=== PATIENT | female | born 1995 | race Caucasian/White ===

== ENCOUNTER 2016-09-29 18:02 | Emergency (ER) | payer MEDICAID ==
[~2016-09-29] VITALS: Ht 157.5 cm; Wt 79.5 kg
[~2016-09-29 18:02] MED LIST: BCP; CEFTIN500 MG PO; FLAGYL500 MG PO; IMPLANON68 MG ID; MACROBID 1100 MG/CAP PO; NEXPLANON68 MG ID; SPRINTEC
[2016-09-29 18:09] VITALS: BP 110/56; PULSE 96; TEMP 98.7
[2016-09-29] MEDS ORDERED: PEN-VEE K500 MG PO (18:36)
== END 2016-09-29 18:46 | disposition home or self-care (01) ==
LOC: COL.ER 18:02
DX: O99.612 Diseases of the digestive system complicating pregnancy, second trimester (principal); K08.89 Other specified disorders of teeth and supporting structures; K03.81 Cracked tooth; O99.332 Smoking (tobacco) complicating pregnancy, second trimester; F17.210 Nicotine dependence, cigarettes, uncomplicated; Z3A.20 20 weeks gestation of pregnancy

== ENCOUNTER 2016-12-03 16:30 | Outpatient (CLI) | payer MEDICAID ==
[~2016-12-03] VITALS: Ht 157.5 cm; Wt 88.2 kg
[~2016-12-03 16:30] MED LIST changes: +PEN-VEE K500 MG PO
[2016-12-03 16:43] VITALS: BP 110/72; PULSE 103; TEMP 99.2
[2016-12-03 17:33] LABS: PH 7 (5-8); SQUAMOUS EPITHELIAL 0-2 /hpf; URINE APPEARANCE Clear; URINE BACTERIA None Seen /hpf; URINE BILIRUBIN Negative (NEGATIVE); URINE BLOOD Negative (NEGATIVE); URINE COLOR Yellow; URINE GLUCOSE Negative (NEGATIVE); URINE KETONE Negative (NEGATIVE); URINE RBC 0-2 /hpf; URINE UROBILINOGEN Negative (NEGATIVE)
[2016-12-03 17:37] VITALS: BP 104/63; PULSE 91
== END 2016-12-03 17:45 | disposition home or self-care (01) ==
LOC: LDRO 16:30
PROVIDERS: Obstetrics & Gynecology
DX: O99.89 Other specified diseases and conditions complicating pregnancy, childbirth and the puerperium (principal); M54.9 Dorsalgia, unspecified; R10.9 Unspecified abdominal pain; Z3A.28 28 weeks gestation of pregnancy
CPT/HCPCS: J0702

== ENCOUNTER 2016-12-23 23:13 | Outpatient (CLI) | payer MEDICAID ==
[~2016-12-23] VITALS: Ht 157.5 cm; Wt 89.1 kg
[2016-12-23 23:35] VITALS: BP 107/61; PULSE 107; TEMP 98.8
[2016-12-24] VITALS (15 sets, daily range): BP systolic 93–119; BP diastolic 47–69; PULSE 74–107; TEMP 98.3–98.8
[2016-12-24 03:31] LABS: BASO % 0.2 % (0.0-2.0); EOS # 0.1 (0.0-0.7); EOS % 0.6 % (0-4.0); GRAN # 9.2 (1.4-6.5); LYMPH # 3.2 (1.2-3.4); LYMPH % 22.7 % (20.0-51.0); MEAN CELL VOLUME 90 fl (80.0-100.0); MEAN CORPUSCULAR HGB CONC 35 g/dl (33.0-37.0); MEAN PLATELET VOLUME 13.6 fl (7.4-10.4); MONO # 1.4 (0.1-0.6); MONO % 9.7 % (1.7-9.3); PLATELET COUNT 96 K/mm3 (130-400); RED BLOOD COUNT 3.46 M/mm3 (4.10-5.30); REDCELL DISTRIBUTION WIDTH-CV 13.1 % (11.5-14.5)
[2016-12-24 03:33] LABS: HEMATOCRIT 31.2 % (37.0-47.0); HEMOGLOBIN 10.8 g/dl (12.5-16.0); MEAN CORPUSCULAR HEMOGLOBIN 31 pg (27.0-31.0)
[2016-12-24] MEDS ORDERED: PROCARDIA10 MG PO (04:26)
== END 2016-12-24 07:20 | disposition home or self-care (01) ==
LOC: LDRO 23:13
PROVIDERS: Obstetrics & Gynecology
DX: O62.9 Abnormality of forces of labor, unspecified (principal); Z3A.31 31 weeks gestation of pregnancy

== ENCOUNTER 2016-12-29 12:05 | Inpatient (IN) | payer MEDICAID ==
[2016-12-29] VITALS (11 sets, daily range): BP systolic 91–117; BP diastolic 53–81; PULSE 54–113
[~2016-12-29] VITALS: Ht 157.5 cm; Wt 90.0 kg
[~2016-12-29 12:05] MED LIST changes: +PROCARDIA10 MG PO
[2016-12-29 12:47] LABS: BASO % 0.2 % (0.0-2.0); EOS # 0.1 (0.0-0.7); EOS % 0.4 % (0-4.0); GRAN # 9.7 (1.4-6.5); GRAN % 73.5 % (42.2-75.2); LYMPH # 2.3 (1.2-3.4); LYMPH % 17.7 % (20.0-51.0); MEAN CELL VOLUME 90 fl (80.0-100.0); MEAN CORPUSCULAR HGB CONC 34 g/dl (33.0-37.0); MEAN PLATELET VOLUME 14.1 fl (7.4-10.4); MONO % 7.7 % (1.7-9.3); PLATELET COUNT 72 K/mm3 (130-400); RED BLOOD COUNT 3.68 M/mm3 (4.10-5.30); REDCELL DISTRIBUTION WIDTH-CV 12.8 % (11.5-14.5); WHITE BLOOD COUNT 13.2 K/mm3 (4.8-10.8)
[2016-12-29 12:57] LABS: HEMATOCRIT 33.1 % (37.0-47.0); HEMOGLOBIN 11.3 g/dl (12.5-16.0); MEAN CORPUSCULAR HEMOGLOBIN 31 pg (27.0-31.0)
[2016-12-29] MEDS ORDERED: PERCOCET 325 MG1 TA2 PO (14:38)
[2016-12-29] MEDS ORDERED: IBU800 M1 PO (14:38)
== END 2016-12-29 19:05 | disposition home or self-care (01) | DRG 775 ==
LOC: LDRO 12:05 → LDR 12:05 → LDRO 12:25 → LDR 12:26
PROVIDERS: Obstetrics & Gynecology
PROC: 10D07Z3 Extraction of Products of Conception, Low Forceps, Via Natural or Artificial Opening (ICD-10-PCS; principal; 2016-12-29)
PROC: 10E0XZZ Delivery of Products of Conception, External Approach (ICD-10-PCS; 2016-12-29)
PROC: 0HQ9XZZ Repair Perineum Skin, External Approach (ICD-10-PCS; 2016-12-29)
DX: O60.14X1 Preterm labor third trimester with preterm delivery third trimester, fetus 1 (principal); O60.14X2 Preterm labor third trimester with preterm delivery third trimester, fetus 2; O30.043 Twin pregnancy, dichorionic/diamniotic, third trimester; O99.334 Smoking (tobacco) complicating childbirth; F17.210 Nicotine dependence, cigarettes, uncomplicated; O76 Abnormality in fetal heart rate and rhythm complicating labor and delivery; O70.0 First degree perineal laceration during delivery; Z3A.32 32 weeks gestation of pregnancy; Z37.2 Twins, both liveborn
CPT/HCPCS: J2540; J2590; J7120

== ENCOUNTER 2017-09-15 08:15 | Emergency (ER) | payer MEDICAID ==
[~2017-09-15] VITALS: Ht 157.5 cm; Wt 75.0 kg
[~2017-09-15 08:15] MED LIST changes: +IBU800 M1 PO; +PERCOCET 325 MG1 TA2 PO
[2017-09-15 09:24] LABS: COLLECTION METHOD CLEAN CATCH
[2017-09-15 09:29] LABS: MUCOUS Present /lpf; PH 5 (5-8); URINE APPEARANCE Hazy; URINE BACTERIA None Seen /hpf; URINE BILIRUBIN Negative (NEGATIVE); URINE BLOOD Negative (NEGATIVE); URINE COLOR Amber; URINE GLUCOSE Negative (NEGATIVE); URINE KETONE Negative (NEGATIVE); URINE LEUKOCYTE ESTERASE Negative (NEGATIVE); URINE NITRATE Negative (NEGATIVE); URINE PROTEIN(semi-quant) 1+ (NEGATIVE)
[2017-09-15] MEDS ORDERED: TESSALON P100 MG/CAP PO (09:53)
[2017-09-15 09:54] VITALS: BP 125/66; PULSE 82; TEMP 98.3
== END 2017-09-15 09:54 | disposition home or self-care (01) ==
LOC: COL.ER 08:15
PROVIDERS: Physician Assistant
DX: J10.1 Influenza due to other identified influenza virus with other respiratory manifestations (principal); F17.210 Nicotine dependence, cigarettes, uncomplicated

== ENCOUNTER 2018-10-25 09:05 | Emergency (ER) | payer SELFPAY ==
[~2018-10-25] VITALS: Ht 157.5 cm; Wt 87.3 kg
[~2018-10-25 09:05] MED LIST changes: +BENADRYL25 M2 PO; +SUDAFED30 MG PO; +TESSALON P100 MG/CAP PO
[2018-10-25 09:17] VITALS: TEMP 98.1
[2018-10-25] MEDS ORDERED: PHENERGAN 25 TA25 MG PO (09:30)
[2018-10-25 10:04] LABS: BASO % 0.3 % (0.0-2.0); EOS # 0.1 (0.0-0.7); EOS % 1.8 % (0-4.0); GRAN % 65.5 % (42.2-75.2); HEMATOCRIT 38.6 % (37.0-47.0); HEMOGLOBIN 13.7 g/dl (12.5-16.0); LYMPH # 1.7 (1.2-3.4); LYMPH % 21.8 % (20.0-51.0); MEAN CELL VOLUME 92 fl (80.0-100.0); MEAN CORPUSCULAR HEMOGLOBIN 33 pg (27.0-31.0); MEAN CORPUSCULAR HGB CONC 36 g/dl (33.0-37.0); MEAN PLATELET VOLUME 10.7 fl (7.4-10.4); MONO # 0.8 (0.1-0.6); MONO % 10.2 % (1.7-9.3); PLATELET COUNT 120 K/mm3 (130-400); REDCELL DISTRIBUTION WIDTH-CV 12.3 % (11.5-14.5)
[2018-10-25 10:15] LABS: ALBUMIN 4.2 gm/dL (3.5-5.0); BILIRUBIN,TOTAL 0.4 mg/dL (0.0-1.0); CREATININE, serum 0.54 (0.52-1.25); POTASSIUM 4.1 mmol/L (3.4-5.0); TOTAL PROTEIN 7.4 gm/dL (6.4-8.2)
[2018-10-25 11:17] VITALS: BP 100/75; PULSE 71
== END 2018-10-25 11:18 | disposition home or self-care (01) ==
LOC: COL.ER 09:05
PROVIDERS: Emergency Medicine
DX: E86.9 Volume depletion, unspecified (principal); R11.10 Vomiting, unspecified; R19.7 Diarrhea, unspecified; F17.210 Nicotine dependence, cigarettes, uncomplicated
CPT/HCPCS: C9113; J1885; J2550; J7030

== ENCOUNTER 2019-05-03 10:25 | Emergency (ER) | payer SELFPAY ==
[~2019-05-03] VITALS: Ht 157.5 cm; Wt 77.3 kg
[~2019-05-03 10:25] MED LIST changes: +PHENERGAN 25 TA25 MG PO
[2019-05-03 10:28] VITALS: BP 117/69; TEMP 97.3
[2019-05-03] MEDS ORDERED: MELATONIN5 M1 SL (10:53)
[2019-05-03] MEDS ORDERED: NORCO 325 MG-51 TAB PO (11:00)
[2019-05-03] MEDS ORDERED: AMOXICILLIN 50500 MG PO (11:00)
[2019-05-03 11:10] VITALS: PULSE 86
== END 2019-05-03 11:10 | disposition home or self-care (01) ==
LOC: COL.ER 10:25
DX: K02.9 Dental caries, unspecified (principal); F17.210 Nicotine dependence, cigarettes, uncomplicated

== ENCOUNTER 2021-01-10 09:34 | Emergency (ER) | payer MEDICAID ==
[~2021-01-10] VITALS: Ht 157.5 cm; Wt 93.2 kg
[~2021-01-10 09:34] MED LIST changes: +AMOXICILLIN 50500 MG PO; +MELATONIN5 M1 SL; +NORCO 325 MG-51 TAB PO
[2021-01-10 09:43] VITALS: TEMP 98
[2021-01-10] MEDS ORDERED: SPRINTEC 35 MCG1 TAB PO (09:53)
[2021-01-10 10:19] LABS: BASO % 0.3 % (0.0-2.0); EOS # 0.1 (0.0-0.7); EOS % 0.8 % (0-4.0); GRAN % 75.6 % (42.2-75.2); HEMOGLOBIN 12.1 g/dl (12.5-16.0); LYMPH # 1.6 (1.2-3.4); LYMPH % 14.6 % (20.0-51.0); MEAN CELL VOLUME 89 fl (80.0-100.0); MEAN CORPUSCULAR HEMOGLOBIN 31 pg (27.0-31.0); MEAN CORPUSCULAR HGB CONC 35 g/dl (33.0-37.0); MEAN PLATELET VOLUME 9.9 fl (7.4-10.4); MONO # 0.9 (0.1-0.6); MONO % 8.3 % (1.7-9.3); PLATELET COUNT 235 K/mm3 (130-400); RED BLOOD COUNT 3.91 M/mm3 (4.10-5.30); REDCELL DISTRIBUTION WIDTH-CV 11.4 % (11.5-14.5)
[2021-01-10 10:20] LABS: HEMATOCRIT 34.9 % (37.0-47.0)
[2021-01-10 10:33] LABS: ALANINE AMINOTRANSFERASE 120 U/L (4-34); ALBUMIN 4.2 gm/dL (3.5-5.0); ALKALINE PHOSPHATASE 75 U/L (50-136); ANION GAP 7 mmol/L (7-16); AST,SGOT 73 U/L (15-37); BILIRUBIN,TOTAL 1.2 mg/dL (0.0-1.0); BLOOD UREA NITROGEN 8 mg/dL (7-17); CALCIUM 9.8 mg/dL (8.4-10.2); CARBON DIOXIDE 20 mmol/L (22-30); CHLORIDE 109 mmol/L (98-107); CREATININE, serum 0.51 (0.52-1.25); GLUCOSE 110 mg/dL (74-106); POTASSIUM 4.1 mmol/L (3.4-5.0); SODIUM 136 mmol/L (137-145)
[2021-01-10 10:45] LABS: TROPONIN-I < 0.012 ng/mL (0.000-0.035)
[2021-01-10] MEDS ORDERED: PROAIR HFA0.09 MG/AC IH (15:27)
[2021-01-10] MEDS ORDERED: ELIQUIS 5MG PO (15:27)
[2021-01-10] MEDS ORDERED: PERCOCET 325 MG1 TA2 PO (15:28)
[2021-01-10 16:03] VITALS: BP 144/86; PULSE 81
== END 2021-01-10 16:03 | disposition home or self-care (01) ==
LOC: COL.ER 09:34
PROVIDERS: Personal Emergency Response Attendant
DX: J18.9 Pneumonia, unspecified organism (principal); I26.99 Other pulmonary embolism without acute cor pulmonale; Z87.891 Personal history of nicotine dependence; Z20.822 Contact with and (suspected) exposure to COVID-19
CPT/HCPCS: 99222-AI; J0456; J0696; J1650; J2060; J2270; J7030; J7050; Q9967

== ENCOUNTER 2021-01-10 23:15 | Observation (INO) | payer MEDICAID ==
[~2021-01-10] VITALS: Ht 157.5 cm; Wt 96.3 kg
[~2021-01-10 23:15] MED LIST changes: +ELIQUIS 5MG PO; +PROAIR HFA0.09 MG/AC IH; +SPRINTEC 35 MCG1 TAB PO
--- NOTE | 2021-01-11 01:30 | NUR ---
Patient up from ER. Alert and oriented x 3. Patient moaning loudly and c/o back pain, medications given per orders. Stated she was unable to move when she first arrived to room then transfered with SBA from cart to bed. Patient oriented to room. Denies further needs at this time.
--- NOTE | 2021-01-11 02:29 | NUR ---
Patient called out states she is nauseated, upon entering patient room she is sleeping, respirations even and unlabored.
[2021-01-11 04:16] VITALS: BP 132/82; PULSE 106; TEMP 98.3
--- NOTE | 2021-01-11 05:41 | NUR ---
Patient doing well through the night, Requests pain medication for back pain. States pain remains constant and without change. Medications given per orders, educated patient on medicatios. Denies further needs at this time. Will report off to day shift.
[2021-01-11 07:15] VITALS: BP 143/76; PULSE 120; TEMP 99.4
--- NOTE | 2021-01-11 08:05 | NUR ---
PT C/O PAIN IN R CHEST AND BACK AND SHE DESCRIBES IT AN ACHE. PAIN MEDICATIONS NOT DUE UNTIL 929. PT AOX4, NO OTHER NEEDS. ASSESSMENT PERFORMED, PT ORDERED BREAKFAST. INDEPENDENT IN ROOM WITH A STEADY GATE.
[2021-01-11 09:03] LABS: BASO % 0.2 % (0.0-2.0); EOS % 0.1 % (0-4.0); GRAN # 8.1 (1.4-6.5); GRAN % 76.1 % (42.2-75.2); HEMOGLOBIN 11.2 g/dl (12.5-16.0); LYMPH # 1.3 (1.2-3.4); LYMPH % 12.7 % (20.0-51.0); MEAN CELL VOLUME 90 fl (80.0-100.0); MEAN CORPUSCULAR HEMOGLOBIN 31 pg (27.0-31.0); MEAN CORPUSCULAR HGB CONC 35 g/dl (33.0-37.0); MEAN PLATELET VOLUME 9.4 fl (7.4-10.4); MONO # 1.1 (0.1-0.6); MONO % 10.3 % (1.7-9.3); PLATELET COUNT 200 K/mm3 (130-400); REDCELL DISTRIBUTION WIDTH-CV 11.4 % (11.5-14.5)
[2021-01-11 09:10] LABS: HEMATOCRIT 32.5 % (37.0-47.0)
--- NOTE | 2021-01-11 09:20 | NUR ---
PERCOCET GIVEN WITH ELIQUIS, PT STILL C/O SOB AND CHEST PAIN BUT DENIES DIZZINESS. DR. HUFF NOTIFIED OF PAIN, NO NEW ORDERS AT THIS TIME.
[2021-01-11 09:24] LABS: CALCIUM 9.2 mg/dL (8.4-10.2); CREATININE, serum 0.5 (0.52-1.25); POTASSIUM 3.7 mmol/L (3.4-5.0)
[2021-01-11 11:40] VITALS: BP 122/73; PULSE 106; TEMP 99.4
--- NOTE | 2021-01-11 12:22 | NUR ---
stopped by but nothing needed at this time.
--- NOTE | 2021-01-11 12:53 | NUR ---
Plan to return home with her Aba . Patient reports that she resides locally with spouse and children. Patient indicated that she does not have PCP but is interested in a referral. Uses [facility] for medications. Patient reports that she would like to manage pain and breathing concerns. Patient reports that she has transportation home with her . Patient denies having any DME use or need and does not have any care support concerns and does not use any home supports. Will continue to follow care and provided support concerns.
--- NOTE | 2021-01-11 17:21 | NUR ---
pt c/o pain all day, more controlled with ketoralac, vitals stable, no other needs,
[2021-01-11 17:29] VITALS: BP 124/80; PULSE 89; TEMP 98.5
--- NOTE | 2021-01-11 20:00 | NUR ---
Patient in bed resting. Alert and oriented x 3. Assessment complete. States pain 4/10 to back. States she is feeling better than last night. Denies further needs at this time.
[2021-01-11 20:33] VITALS: BP 121/79; PULSE 110; TEMP 99.1
[2021-01-12] VITALS (7 sets, daily range): BP systolic 108–126; BP diastolic 66–83; PULSE 85–100; TEMP 98.5–99.1
--- NOTE | 2021-01-12 05:54 | NUR ---
Patient c/o pain through the night, medications given per orders. Denies needs at this time. Will report off to day shift.
[2021-01-12 08:09] LABS: BASO % 0.3 % (0.0-2.0); EOS # 0.1 (0.0-0.7); EOS % 0.9 % (0-4.0); GRAN # 4.8 (1.4-6.5); GRAN % 62.7 % (42.2-75.2); HEMOGLOBIN 10.3 g/dl (12.5-16.0); LYMPH # 1.9 (1.2-3.4); LYMPH % 24.5 % (20.0-51.0); MEAN CELL VOLUME 92 fl (80.0-100.0); MEAN CORPUSCULAR HEMOGLOBIN 31 pg (27.0-31.0); MEAN CORPUSCULAR HGB CONC 34 g/dl (33.0-37.0); MEAN PLATELET VOLUME 10.4 fl (7.4-10.4); MONO # 0.9 (0.1-0.6); MONO % 11.1 % (1.7-9.3); PLATELET COUNT 212 K/mm3 (130-400); RED BLOOD COUNT 3.35 M/mm3 (4.10-5.30); REDCELL DISTRIBUTION WIDTH-CV 11.5 % (11.5-14.5)
[2021-01-12 08:23] LABS: CREATININE, serum 0.52 (0.52-1.25); HEMATOCRIT 30.7 % (37.0-47.0); POTASSIUM 3.3 mmol/L (3.4-5.0)
--- NOTE | 2021-01-12 09:22 | NUR ---
PT PLEASANT, AOX4, REPORTS PAIN 6/10 IN R FLANK, DENIES CHEST PAIN, APPEARS SOB AT REST, DOES NOT REQUIRE OXYGEN, REPORTS PAIN IS BETTER MANAGED WITH PERCOCET AND TORADOL. PT MENSTRUATING AT THIS TIME. NO OTHER NEEDS
--- NOTE | 2021-01-12 17:29 | NUR ---
PT C/O PAIN, MORE MANAGEABLE TODAY, PT APPEARS TO BE IN BETTER SPIRITS, DENIES CHEST PAIN, REPORTS SOB, NO OTHER NEEDS
--- NOTE | 2021-01-12 19:30 | NUR ---
Received report from Nhi. Patient states she wants to take a shower. Asked if she can do it independently and if she have any dizziness, she said she can do it and she's okay. She reports pain of 3/10.
[2021-01-13 04:26] VITALS: BP 111/83; PULSE 72; TEMP 98.6
--- NOTE | 2021-01-13 06:14 | NUR ---
Patient still with occasional complains of pain on her back, mostly on the left side. Pain medications given. Still maintained on room air.
[2021-01-13 07:24] VITALS: BP 118/78; PULSE 85; TEMP 98.5
[2021-01-13 08:36] LABS: HEMATOCRIT 30.1 % (37.0-47.0); HEMOGLOBIN 10.4 g/dl (12.5-16.0); MEAN CELL VOLUME 91 fl (80.0-100.0); MEAN CORPUSCULAR HEMOGLOBIN 32 pg (27.0-31.0); MEAN CORPUSCULAR HGB CONC 35 g/dl (33.0-37.0); MEAN PLATELET VOLUME 9.9 fl (7.4-10.4); PLATELET COUNT 232 K/mm3 (130-400); REDCELL DISTRIBUTION WIDTH-CV 11.5 % (11.5-14.5)
[2021-01-13 08:48] LABS: CALCIUM 9.3 mg/dL (8.4-10.2); CREATININE, serum 0.51 (0.52-1.25); POTASSIUM 3.7 mmol/L (3.4-5.0)
[2021-01-13] MEDS ORDERED: ELIQUIS 5MG PO (09:50)
[2021-01-13] MEDS ORDERED: ZITHROMAX 250M250 MG PO (10:18)
[2021-01-13] MEDS ORDERED: OMNICEF 300MG300 MG PO (10:18)
--- NOTE | 2021-01-13 12:19 | NUR ---
Discharge instructions given to patient, instructed to take meds as prescribed/ changes to Eliquis, scripts for Abx sent to pharmacy for her, IV and tele removed, instructed to follow up with her PCP as we have scheduled for her, leaving with her significant other, I escorted them out the door
== END 2021-01-13 12:41 | disposition home or self-care (01) ==
LOC: COL.ER 23:15 → MEDICAL 01-11
PROVIDERS: Internal Medicine; Physician Assistant; ADMIT Internal Medicine
DX: I26.99 Other pulmonary embolism without acute cor pulmonale (principal); R09.1 Pleurisy; R06.00 Dyspnea, unspecified; E66.9 Obesity, unspecified; F10.988 Alcohol use, unspecified with other alcohol-induced disorder; Z86.16 Personal history of COVID-19; Z79.891 Long term (current) use of opiate analgesic; Z79.01 Long term (current) use of anticoagulants; Z79.899 Other long term (current) drug therapy; Z87.891 Personal history of nicotine dependence; Z83.3 Family history of diabetes mellitus; Z80.0 Family history of malignant neoplasm of digestive organs
CPT/HCPCS: 99239; A9284; G0378; J0696; J1885; J2060; J3010; J7030

== ENCOUNTER 2021-07-23 08:39 | Emergency (ER) | payer MEDICAID ==
[~2021-07-23] VITALS: Ht 157.5 cm; Wt 96.4 kg
[~2021-07-23 08:39] MED LIST changes: +OMNICEF 300MG300 MG PO; +ZITHROMAX 250M250 MG PO
[2021-07-23 09:09] VITALS: TEMP 99.8
[2021-07-23 09:43] LABS: STREP SCREEN NEGATIVE
[2021-07-23 10:05] VITALS: BP 117/70; PULSE 91
== END 2021-07-23 10:07 | disposition home or self-care (01) ==
LOC: COL.ER 08:39
PROVIDERS: Emergency Medicine
DX: U07.1 COVID-19 (principal); Z87.891 Personal history of nicotine dependence

== ENCOUNTER 2022-03-13 14:11 | Emergency (ER) | payer MEDICAID ==
[~2022-03-13] VITALS: Ht 157.5 cm; Wt 88.6 kg
[2022-03-13 14:20] VITALS: TEMP 98.8
[2022-03-13 14:53] LABS: BASO % 0.5 % (0.0-2.0); EOS # 0.1 K/mm3 (0.0-0.7); EOS % 1.3 % (0.0-4.0); GRAN # 4.5 K/mm3 (1.4-6.5); GRAN % 58.3 % (42.2-75.2); HEMOGLOBIN 13.2 g/dl (12.5-16.0); LYMPH # 2.6 K/mm3 (1.2-3.4); MEAN CELL VOLUME 91 fl (80.0-100.0); MEAN CORPUSCULAR HEMOGLOBIN 33 pg (27-31); MEAN CORPUSCULAR HGB CONC 36 g/dl (33.0-37.0); MEAN PLATELET VOLUME 10.1 fl (7.4-10.4); MONO # 0.5 K/mm3 (0.1-0.6); MONO % 6.8 % (1.7-9.3); PLATELET COUNT 179 K/mm3 (130-400); RED BLOOD COUNT 4.03 M/mm3 (4.10-5.30); REDCELL DISTRIBUTION WIDTH-CV 11.8 % (11.5-14.5)
[2022-03-13 14:58] LABS: HEMATOCRIT 36.8 % (37.0-47.0)
[2022-03-13 15:02] LABS: ALANINE AMINOTRANSFERASE 47 U/L (0-55); ALBUMIN 4.5 gm/dL (3.5-5.0); ALKALINE PHOSPHATASE 54 U/L (40-150); ANION GAP 12 mmol/L (7-16); AST,SGOT 31 U/L (5-34); BILIRUBIN,TOTAL 0.7 mg/dL (0.2-1.2); BLOOD UREA NITROGEN 15 mg/dL (7-19); CALCIUM 10.4 mg/dL (8.4-10.2); CARBON DIOXIDE 22 mmol/L (22-29); CHLORIDE 105 mmol/L (98-107); CREATININE, serum 0.74 mg/dL (0.57-1.11); GLUCOSE 116 mg/dL (70-99); POTASSIUM 3.8 mmol/L (3.5-4.5); SODIUM 139 mmol/L (136-145); TOTAL PROTEIN 7.4 gm/dL (6.2-8.1)
[2022-03-13 15:10] LABS: TROPONIN-I < 0.010 ng/mL (0.00-0.033)
[2022-03-13 16:15] VITALS: BP 111/73; PULSE 70
== END 2022-03-13 16:15 | disposition home or self-care (01) ==
LOC: COL.ER 14:11
PROVIDERS: Emergency Medicine
DX: R07.2 Precordial pain (principal); Z86.16 Personal history of COVID-19
CPT/HCPCS: Q9967

== ENCOUNTER 2022-08-27 08:24 | Emergency (ER) | payer MEDICAID ==
[~2022-08-27] VITALS: Ht 157.5 cm; Wt 90.9 kg
[2022-08-27 08:45] VITALS: BP 136/89; TEMP 98.4
[2022-08-27] MEDS ORDERED: NORCO 325 MG-51 TAB PO (09:08)
[2022-08-27] MEDS ORDERED: AMOXICILLIN 50500 MG PO (09:08)
[2022-08-27 09:15] VITALS: PULSE 77
== END 2022-08-27 09:15 | disposition home or self-care (01) ==
LOC: COL.ER 08:24
DX: K02.9 Dental caries, unspecified (principal)